=== PATIENT | male | born 1970 | race Two or more races ===

== ENCOUNTER 2016-06-30 20:09 | Emergency (ER) | payer MEDICAID, OTHER ==
[2016-06-30 20:18] VITALS: RESP 16; TEMP 98.1
--- NOTE | 2016-06-30 20:55 | EDPHY ---
HPI/HX/ROS/PE/MDM Narrative: CHIEF COMPLAINT: rectal pain. HISTORY OF PRESENT ILLNESS: 45 year old presents concerned about rectal discomfort and blood on stools today. Has history of thrombosed hemorrhoid and a history of anal fissure. Has been sitting alot for work. No upper abdominal pain. No fever, chills, chest pain, shortness of breath, palpitations, vomiting, diarrhea, urinary complaints, headache, lightheadedness. REVIEW OF SYSTEMS: Aside from elements discussed in the HPI, a comprehensive 10-point review of systems was reviewed and is negative. PAST MEDICAL HISTORY: Hemorrhoid, anal fissure SOCIAL HISTORY: Nonsmoker. VITAL SIGNS: Reviewed by me GENERAL: Well-developed, well-nourished, resting comfortably in no respiratory distress. HEENT: Benign exam. LUNGS: Clear to auscultation bilaterally, no wheezes, rhonchi or rales. CARDIAC: Regular rate and rhythm, no rubs, murmurs or gallops. ABDOMEN: Soft, nontender, nondistended, bowel sounds normal. BACK: No CVA tenderness. RECTAL: No hemorrhoids seen, tenderness on internal exam, no hemorrhoids palpated. No blood on glove. No stool present. EXTREMITIES: No trauma. No edema. Range of motion is normal throughout. NEURO: Alert and oriented, grossly nonfocal. SKIN: Warm and dry, no rash. PSYCHIATRIC: Normal mentation, no agitation. Portions of this note were transcribed by a medical billing specialist. I personally performed a history, physical exam, medical decision making, and confirmed accuracy of information the transcribed note. ED Course: Patient reports rectal exam as very uncomfortable. No clear etiology of bloody stools or rectal pain identified. No abscess. Recommend stool softner and anusol HC suppositories. Referred to PCP. MDM: Diff dx of patient rectal pain considered including anal fissure, hemorrhoid, thrombosed hemorrhoid, abscess. - Data Points Medications Given: Discontinued Medications Ibuprofen (Motrin) 600 mg PO EDNOW ONE Stop: 06/30/16 21:20 Last Admin: 06/30/16 21:45 Dose: 600 mg General Time Seen by Provider: 06/30/16 20:52 Initial Vital Signs: Initial Vital Signs Temperature (C) 36.7 C 06/30/16 20:16 Heart Rate 66 06/30/16 20:16 Respiratory Rate 16 06/30/16 20:16 Blood Pressure 131/79 H 06/30/16 20:16 O2 Sat (%) 98 06/30/16 20:16 O2 Delivery Mode Room Air Allergies/Adverse Reactions: Sulfa (Sulfonamide Antibiotics) Allergy (Mild, Verified 06/30/16 20:18) Constipation Home Medications: Medication Instructions Recorded Hydrocortisone Acetate [Anucort-Hc] 25 mg RC BID PRN #20 supp.rect 06/30/16 Departure - Departure Disposition: Home, Routine, Self-Care Clinical Impression: Rectal pain, Anal fissure Condition: Good Instructions: Anal Fissure (ED), Rectal Pain (ED) Additional Instructions: I recommend Ibuprofen (Motrin, Advil) or Naproxen Sodium (Aleve) for pain and anti-inflammatory effects. You may take either one, but do not take both. Your dose is: Ibuprofen 600 mg every 6-8 hours with food. OR Naproxen Sodium (Aleve) 220 mg every 12 hours. You been given a prescription for Anusol suppositories. Please use these as directed. Take a stool softener for the next several days. Eat a well balanced diet. Please follow up with the primary care physician as directed or with [facility]. Return to the emergency department or seek care urgently if you develop a fever , worsening pain despite the above measures, significant amounts of rectal bleeding, significant rectal pain, or other concerns. Referrals: [facility],. [Clinic] - As per Instructions Angeles De La Cruz MD [Medical Doctor] - As per Instructions Prescriptions: Hydrocortisone Acetate [Anucort-Hc] 25 mg RC BID PRN #20 supp.rect PRN Reason: Rectal pain
[2016-06-30] MEDS ORDERED: IBUPROFEN 600 MG TAB PO ONE (21:19)
[2016-06-30 21:50] VITALS: BP 148/86; PULSE 64; O2SAT 94
== END 2016-06-30 21:49 | disposition home or self-care (01) ==
DX: K62.89 Other specified diseases of anus and rectum (principal); K60.0 Acute anal fissure

== ENCOUNTER 2018-05-28 07:40 | Emergency (ER) | payer MEDICAID ==
[2018-05-28 07:51] VITALS: BP 139/75
--- NOTE | 2018-05-28 08:10 | EDPHY ---
H & P Time Seen by Provider: 05/28/18 07:53 HPI/ROS: This patient presents with history of sore throat, cough fevers and myalgias. The symptoms started a day and half ago he reports associated fatigue. He has been spending most the time in bed due to this fatigue. He reports fevers with chills. He describes the cough is primarily dry with occasional small amount of productive sputum. He has throat pain peak intensity 8/10 currently 6/10 after Tylenol 1000 mg 2 hr prior to arrival. He is concerned about potential strep throat because his the just got over strep throat last week. ROS: Constitutional: As per HPI. HEENT: No sinus pain. No ear pain. Pulmonary: No significant dyspnea. He does report some pain when he coughs but no pain with deep breath. No hemoptysis. Cardiovascular: No lightheadedness. GI: No nausea vomiting. No diarrhea Integumentary: No rash. No diaphoresis 7 point review of symptoms is performed and otherwise negative with exception of pertinent positives and negatives listed in HPI and ROS Smoking Status: Never smoked Physical Exam: Physical Exam Vital signs are normal. General: No acute distress HEENT: Nose: Clear discharge bilaterally. No sinus tenderness to percussion. Ears: External canals and tympanic membranes are clear with no erythema or abnormal findings bilaterally. Oropharynx: No erythema or exudates. No dysphonia. No drooling or stridor. Eyes: Pupils equal and react to light. Extraocular motions are intact. Neck: Supple with no meningismus. No lymphadenopathy Lungs: Clear to auscultation bilaterally with no rales, rhonchi or wheeze. No respiratory distress. Cardiac: Regular rate and rhythm with no murmur gallop or rub Skin: No rash or pallor. Neuro: Alert with no focal deficits noted. Initial differential diagnosis: Influenza, strep pharyngitis, viral URI with cough Constitutional: Initial Vital Signs Temperature (C) 37.5 C 05/28/18 07:48 Heart Rate 75 05/28/18 07:48 Respiratory Rate 18 05/28/18 07:48 Blood Pressure 139/75 H 05/28/18 07:48 O2 Sat (%) 96 05/28/18 07:48 O2 Delivery Mode Room Air Allergies/Adverse Reactions: No Known Allergies Allergy (Unverified 05/28/18 07:48) Home Medications: Medication Instructions Recorded Albuterol Hfa Anes Only [Proair 2 puffs IH Q4 PRN #1 mdi 05/28/18 Hfa Icu (*)] Benzonatate [Tessalon Pearles (RX)] 100 - 200 mg PO TID PRN #20 cap 05/28/18 Oseltamivir Phosphate [Tamiflu] 75 mg PO BID #10 capsule 05/28/18 MDM/Departure - MDM Diagnostics: POC Influenza: + for Flu A Rapid strep: neg. ED Course/Re-evaluation: I counseled patient regarding his influenza a and answered all his questions prior to discharge home with plan to start Tamiflu, ibuprofen, Tylenol, albuterol for harsh hacky cough and Tessalon Perles for cough prevents sleep. He will follow up primary care physician if he is not improving with treatment plan. He understands need to return emergency department should develop any significant worsening despite treatment plan. - Depart Disposition: Home, Routine, Self-Care Clinical Impression: Influenza A Condition: Good Instructions: Influenza (ED) Additional Instructions: Diagnosis: Influenza A Plan: Tamiflu Ibuprofen and Tylenol for discomfort and fevers as needed Drink plenty fluids No work or exposure to large number of people in close proximity until the fever has resolved for 24 hr or more. Albuterol inhaler if needed for cough, wheeze or shortness of breath. Tessalon Perles if needed for cough prevents sleep. Follow-up with primary care physician if her symptoms are not improving with treatment plan over the next 3-5 days. Return for any significant worsening despite the treatment plan Referrals: NONE *PRIMARY CARE P,. [Primary Care Provider] - As per Instructions Rohit Mahoney MD [Medical Doctor] - As per Instructions
== END 2018-05-28 08:54 | disposition home or self-care (01) ==
LOC: CED 07:40
DX: J10.1 Influenza due to other identified influenza virus with other respiratory manifestations (principal)
CPT/HCPCS: 99283-ER